=== PATIENT | female | born 1955 | race Caucasian/White ===

== ENCOUNTER 2022-11-02 14:11 | Emergency (ER) | payer OTHER ==
[2022-11-02 14:36] VITALS: BP 157/77; PULSE 61; RESP 18; TEMP 98.1; BMI 37.2
[2022-11-02] MEDS ORDERED: ACETAMINOPHEN 325 MG TABLET (FP) PO ONE (15:48)
[2022-11-02] MEDS ORDERED: ACETAMINOPHEN 325 MG TABLET (FP) ONE (15:50)
[2022-11-02] MEDS ORDERED: KETOROLAC TROMETHAMINE 30 MG/1 ML VIAL IM ONE (19:28)
[2022-11-02] MEDS ORDERED: KETOROLAC TROMETHAMINE 30 MG/1 ML VIAL ONE (19:36)
== END 2022-11-02 19:58 | disposition home or self-care (01) ==
LOC: JERFT 14:11 → JER 14:11 → JERFT 19:58
PROC: 3E023GC Introduction of Other Therapeutic Substance into Muscle, Percutaneous Approach (ICD-10-PCS; principal; 2022-11-02)
DX: S22.42XA Multiple fractures of ribs, left side, initial encounter for closed fracture (principal); W19.XXXA Unspecified fall, initial encounter
CPT/HCPCS: 70450-TC; 71250-TC; 72125-TC; 72128-TC; 72131-TC; 73502-TC-LT-FY; 73560-TC-LT-FY; 99285-25

== ENCOUNTER 2024-03-04 14:15 | Observation (INO) | payer OTHER ==
[2024-03-04 14:38] VITALS: RESP 18
[2024-03-04] MEDS: LACTATED RINGERS SOLUTION 1000 ML INFUS.BAG IV ONE (16:01)
[2024-03-04 16:09] LABS: BASO % 0.4 % (0-2.0); EOS % 1.7 % (0-4.5); HEMATOCRIT 41.9 % (32.4-45.2); HEMOGLOBIN 13.8 GM/dL (10.7-15.3); LYMPH % 29.1 % (8-40); MCH 27.8 pg (25.7-33.7); MCHC 32.9 g/dl (32.0-36.0); MEAN CELL VOLUME 84.4 fl (80-96); MEAN PLT VOLUME 8.8 fl (7.5-11.1); NEUT % 60.8 % (42.8-82.8); PLATELET COUNT 275 10^3/uL (134-434); RBC 4.96 M/mm3 (3.60-5.2); RDW 15.5 % (11.6-15.6); WHITE BLOOD COUNT 9.5 K/mm3 (4.0-10.0)
[2024-03-04 16:18] LABS: INR 1.06 (0.83-1.09)
[2024-03-04 16:20] LABS: ACTIVATED PTT 38.2 SECONDS (25.2-36.5)
[2024-03-04 16:33] LABS: POTASSIUM 3.9 mmol/L (3.5-5.1)
[2024-03-04 16:35] LABS: CALCIUM 9.1 mg/dL (8.5-10.1)
[2024-03-04 16:36] LABS: ALBUMIN 3.7 g/dl (3.4-5.0); BLOOD UREA NITROGEN 29.3 mg/dL (7-18); MAGNESIUM 2.1 mg/dL (1.8-2.4)
[2024-03-04 16:40] LABS: CREATININE 1.4 mg/dL (0.55-1.3); TOT PROT 7.8 g/dl (6.4-8.2)
[2024-03-04 16:44] LABS: N-TERMINAL BNP 138.5 pg/ml (5-125)
[2024-03-04] MEDS ORDERED: AZITHROMYCIN IVPB 500 MG/250 ML BAG IVPB ONE (17:56)
[2024-03-04] MEDS ORDERED: CEFTRIAXONE 1 GM/50 ML BAG ONE (17:56)
[2024-03-04] MEDS: CEFTRIAXONE 1,000 MG in DEXTROSE 5%-WATER - 50 ML IVPB ONE (17:58)
[2024-03-04] MEDS: AZITHROMYCIN IVPB 500 MG in DEXTROSE 5%-WATER - 250 ML IVPB ONE (18:43)
[2024-03-04 20:24] LABS: EPI CELLS 11 /uL (0-25.1); HYALINE CASTS 0 /uL (0-3.1); PH,URINE 6.5 (5.0-8.0); URINE APPEARANCE CLEAR; URINE BACTERIA 75 /uL (0-1359); URINE BILIRUBIN NEGATIVE (NEGATIVE); URINE COLOR YELLOW; URINE GLUCOSE (UA) NEGATIVE (NEGATIVE); URINE KETONE NEGATIVE (NEGATIVE); URINE LEUK ESTERASE 1+ (NEGATIVE); URINE NITRITE NEGATIVE (NEGATIVE); URINE PROTEIN NEGATIVE (NEGATIVE); URINE RBC 2 /uL (0-23.9); URINE UROBILINOGEN 0.2 mg/dL (0.2-1.0); URINE WBC 43 /uL (0-25.8)
[2024-03-04] MEDS ORDERED: AMOXICILLIN 500 MG CAPSULE (FP) ONE (21:55)
[2024-03-04] MEDS ORDERED: ATORVASTATIN CA 40 MG TABLET (FP) ONE (21:55)
[2024-03-04] MEDS ORDERED: HEPARIN NA (PORCINE) 5,000 UNITS/ML 1ML VIAL ONE (21:56)
[2024-03-04] MEDS: AMOXICILLIN 500 MG CAPSULE (FP) PO SCH (22:03)
[2024-03-04] MEDS: HEPARIN NA (PORCINE) 5,000 UNITS/ML 1ML VIAL SQ SCH (22:04)
[2024-03-04] MEDS: ATORVASTATIN CA 40 MG TABLET (FP) PO SCH (22:04)
[2024-03-05 01:05] VITALS: BMI 37.7
[2024-03-05 09:06] LABS: BASO % 0.7 % (0-2.0); EOS % 2.6 % (0-4.5); HEMATOCRIT 40.3 % (32.4-45.2); HEMOGLOBIN 13.4 GM/dL (10.7-15.3); MCH 28.1 pg (25.7-33.7); MCHC 33.3 g/dl (32.0-36.0); MEAN CELL VOLUME 84.4 fl (80-96); MONO % 7.8 % (3.8-10.2); NEUT % 52.9 % (42.8-82.8); PLATELET COUNT 249 10^3/uL (134-434); RBC 4.78 M/mm3 (3.60-5.2); RDW 15.3 % (11.6-15.6); WHITE BLOOD COUNT 7.9 K/mm3 (4.0-10.0)
[2024-03-05 09:24] LABS: POTASSIUM 3.8 mmol/L (3.5-5.1)
[2024-03-05 09:27] LABS: BLOOD UREA NITROGEN 24.4 mg/dL (7-18)
[2024-03-05 09:30] LABS: CREATININE 1.2 mg/dL (0.55-1.3)
[2024-03-05] MEDS ORDERED: AZITHROMYCIN 250 MG TABLET PO SCH (10:00)
[2024-03-05] MEDS ORDERED: PATIENT'S OWN MEDICATION (NON-FORMULARY) (Losartan/Hydrochlorothiazide [Losartan-Hctz 100- PO SCH (10:00)
[2024-03-05] MEDS ORDERED: HYDROCHLOROTHIAZIDE 12.5 MG CAPSULE (FP) PO SCH (10:00)
[2024-03-05] MEDS: LOSARTAN POTASSIUM 50 MG TABLET PO SCH (10:16)
[2024-03-05] MEDS: MIRTAZAPINE 30 MG TABLET PO SCH (10:16)
[2024-03-05] MEDS: PANTOPRAZOLE 20 MG TABLET PO SCH (10:16)
[2024-03-05] MEDS: CYANOCOBALAMIN (VITAMIN B-12) 1000 MCG/1 ML VIAL IM ONE (12:19)
[2024-03-05 14:16] VITALS: BP 129/52; PULSE 83; TEMP 98.3
== END 2024-03-05 14:52 | disposition home or self-care (01) ==
LOC: JER 14:15 → JERBED 17:32 → J5S 23:39
PROVIDERS: ADMIT Internal Medicine; ATTEND Internal Medicine
PROC: 3E03329 Introduction of Other Anti-infective into Peripheral Vein, Percutaneous Approach (ICD-10-PCS; principal; 2024-03-04)
PROC: 3E013GC Introduction of Other Therapeutic Substance into Subcutaneous Tissue, Percutaneous Approach (ICD-10-PCS; 2024-03-04)
PROC: 3E023GC Introduction of Other Therapeutic Substance into Muscle, Percutaneous Approach (ICD-10-PCS; 2024-03-04)
PROC: 3E0337Z Introduction of Electrolytic and Water Balance Substance into Peripheral Vein, Percutaneous Approach (ICD-10-PCS; 2024-03-04)
DX: R26.81 Unsteadiness on feet (principal); Z91.81 History of falling; R93.89 Abnormal findings on diagnostic imaging of other specified body structures; R29.6 Repeated falls; R53.1 Weakness; J18.9 Pneumonia, unspecified organism; R50.9 Fever, unspecified; I10 Essential (primary) hypertension; E11.9 Type 2 diabetes mellitus without complications; G62.89 Other specified polyneuropathies; M54.59 Other low back pain; G89.29 Other chronic pain; Z79.84 Long term (current) use of oral hypoglycemic drugs
CPT/HCPCS: 36415; 70450-TC; 71045-TC-FY; 72125-TC; 80048; 80053; 81003; 82140; 82607; 82962; 83036; 83735; 83880; 84439; 84443; 84484; 85025; 85610; 85651; 85730; 86140; 86780; 86850; 86900; 86901; 87086; 93005; 93010; 96365; 96367; 96372; 97116-GP; 97161-GP; 99285-25; G0378; J1644